=== PATIENT | female | born 1965 | race Caucasian/White ===

== ENCOUNTER → 2022-07-21 | Outpatient (CLI) | payer BC ==
[2022-07-21 16:21] LABS: % Iron Saturation 27.94 (12.00-45.00); ALT 52 U/L (8-44); AST 30 U/L (13-35); African American GFR (CKD) 84.8 (60.0-200.0); Albumin 4.5 g/dL (3.8-4.9); Albumin/Globulin Ratio 2.15 (1.60-3.17); Alkaline Phosphatase 95 U/L (41-126); BUN/Creat Ratio 17.43 Ratio (12.00-20.00); Bilirubin, Conjugated <0.20 mg/dL (0.20-0.40); Blood Urea Nitrogen 15.3 mg/dL (9.0-27.0); Calcium 9.7 mg/dL (8.7-10.3); Carbon Dioxide 25.4 mmol/L (20.0-27.5); Chloride 108 mmol/L (96-109); Globulin 2.1 g/dL (1.6-3.3); Glucose 105 mg/dL (70-110); Iron 106 ug/dL (50-170); Non-African American GFR(CKD) 73.1 (60.0-200.0); Potassium 4.5 mmol/L (3.5-5.5); Sodium 144 mmol/L (135-145); Total Iron Binding Capacity 379 ug/dL (228-460); Total Protein 6.6 g/dL (6.2-8.2)
[2022-07-21 16:25] LABS: Hepatitis A Antibody IgM Nonreactive (Nonreactive); Hepatitis B Core IgM Nonreactive (Nonreactive); Hepatitis C IgG Antibody Nonreactive (Nonreactive)
[2022-07-21 17:37] LABS: Hepatitis B Surface Antigen Nonreactive (Nonreactive)
[2022-07-22 06:25] LABS: EBV - VCA IgM <10.0 U/mL (<36.0)
== END | disposition home or self-care (01) ==
LOC: LABWHC1 09:21
PROVIDERS: ATTEND Internal Medicine
DX: R74.01 Elevation of levels of liver transaminase levels (principal); E03.9 Hypothyroidism, unspecified
CPT/HCPCS: 36415; 80053; 80074; 82248; 82390; 82525; 83516; 83540; 83550; 84439; 84443; 86038; 86645; 86665

== ENCOUNTER → 2022-08-25 | Outpatient (CLI) | payer BC ==
--- NOTE | 2022-08-25 09:49 | US ---
EXAMINATION TYPE: US liver DATE OF EXAM: 08/25/2022 COMPARISON: NONE CLINICAL INDICATION: Female, 56 years old with history of R74.01 ELEVATION OF LEVELS OF LIVER TRANSAM INASE L; Elevated LFT's TECHNIQUE: Multiple sonographic images of the right upper quadrant are obtained. FINDINGS: EXAM MEASUREMENTS: Liver Length: 15.4 cm Gallbladder Wall: 0.2 cm CBD: 0.3 cm Right Kidney: 11.3 x 5.5 x 4.8 cm Pancreas: wnl, tail obscured by overlying bowel gas Liver: Heterogeneous, hyperechoic, difficult to penetrate/ cystic lesion left lobe= 2.1 x 1.9 x 2.1 cm/ possible cystic lesion anterior to GB= 0.5 cm Gallbladder: Layering debris along the dependent portion of the wall noted. No gallbladder wall thic kening or pericholecystic fluid visualized. Evidence for sonographic Tavarez's sign: No CBD: wnl Right Kidney: wnl IMPRESSION: 1. Hepatic steatosis with simple appearing cyst. No suspicious solid masses. 2. Biliary sludge.
--- NOTE | 2022-08-25 11:08 | MR ---
EXAMINATION TYPE: MR brain wo/w con DATE OF EXAM: 08/25/2022 10:12 AM CLINICAL INDICATION:Female, 56 years old with history of R90.89; F/U to abnormal MRI in 2014, report in pacs, Hx of melanoma in situ. COMPARISON: 11/30/2014 MRI TECHNIQUE: Multi planar, multi sequence imaging was performed through the brain including: T1, T2, In version recovery, susceptibility weighted imaging and gradient echo imaging and Diffusion weighted im aging. The patient was then given intravenous contrast and multi planar, T1 fat-saturation images wer e obtained. IV Contrast: 9 cc Gadavist FINDINGS: The vásquez-white junctions, ventricular system, basal cisterns appear unremarkable. Diffusion-weighted imaging shows no evidence of restricted diffusion to suggest acute/subacute infarct. Intracranial art erial flow voids are maintained. Midline structures show no abnormality. The susceptibility weighted images do not reveal any evidence for micro-hemorrhage. After administration of gadolinium, no abnorm al enhancement is seen. The hippocampus appears unremarkable bilaterally. No significant change from prior. The bone marrow signal is within normal limits. Paranasal sinuses and mastoid air cells: No significant paranasal sinus disease. Visualized orbits: Orbital contents are intact. No appreciable dermal skin thickening or mass identified. No subcutaneous enlarged lymph nodes visual ized. IMPRESSION: 1. No evidence of intracranial mass, acute/subacute infarct, or abnormal enhancement. 2. No appreciable dermal skin thickening or mass identified. No subcutaneous enlarged lymph nodes vi sualized.
== END | disposition home or self-care (01) ==
LOC: RADUSWWP 08:50
PROVIDERS: ATTEND Internal Medicine
DX: K76.0 Fatty (change of) liver, not elsewhere classified (principal); N28.1 Cyst of kidney, acquired; R74.01 Elevation of levels of liver transaminase levels; R90.89 Other abnormal findings on diagnostic imaging of central nervous system
CPT/HCPCS: 76705; 70553; A9585

== ENCOUNTER → 2024-07-31 | Outpatient (CLI) | payer BC ==
--- NOTE | 2024-07-31 13:52 | MR ---
EXAMINATION TYPE: MR neck wo/w con DATE OF EXAM: 07/31/2024 10:16 AM COMPARISON: None. CLINICAL INDICATION: Female, 58 years old with history of D17.9 BENIGN LIPOMATOUS NEOPLASM, UNSPECIFI ED; PHH, Rt Posterior neck lump, Hx of melenoma TECHNIQUE: Multi planar, multi sequence imaging was performed of the neck soft tissues. IV Contrast: 9 mL Gadobutrol FINDINGS: Posterior marker on the neck no definitive mass or lymphadenopathy identified in the area o n the right shoulder. Lipomatous tissue in the area of concern noted. No abnormal enhancement identif ied. The glottis appears unremarkable. Several nonenlarged anterior chain lymph nodes are identified . There is no evidence to suggest a soft tissue mass. The cervical vertebral bodies have preserved heights and alignment. Multilevel disc desiccation and anterior osteophytosis are present. The cervical spinal cord demonstrates a normal appearance. IMPRESSION: 1. Probable marker does not definitely correlate with any mass or lymphadenopathy there is lipomatou s tissue without focal lipoma definitively visualized. No definitive evidence for soft tissue mass. 2. Multilevel degenerative disc disease with associated osteoarthritic changes. [facility], , 07/31/2024 1:50 PM
== END | disposition home or self-care (01) ==
LOC: RADMRIMAIN 08:55
PROVIDERS: ATTEND Surgery
DX: D17.9 Benign lipomatous neoplasm, unspecified (principal); M50.30 Other cervical disc degeneration, unspecified cervical region; M47.812 Spondylosis without myelopathy or radiculopathy, cervical region
CPT/HCPCS: 70543; A9585